=== PATIENT | male | born 1945 | race Caucasian/White ===

== ENCOUNTER 2018-02-04 15:08 | Inpatient (IN) ==
[2018-02-04 16:07] LABS: Basophils % 0.6 % (0.0-0.8); Eosinophils # 0.1 10*3/uL (0.0-0.87); Eosinophils % 0.9 % (0.00-10.9); Hematocrit 32.3 VOL% (42.0-52.0); Hemoglobin 11.9 GM/DL (14.0-18.0); Immature Granulocytes % 0.5 %; Immature Granulocytes Absolute 0.03 #; Lymphocytes # 1.3 10*3/uL (1.4-4.0); Lymphocytes % 20.3 % (21.2-54.2); Mean Corpuscular HGB Conc 36.8 GM/DL (32-36); Mean Corpuscular Hemoglobin 35 PG (27-34); Mean Corpuscular Volume 95.8 FL (87-102); Monocytes # 0.4 10*3/uL (0.11-0.8); Monocytes % 6.3 % (1.7-12.7); Neutrophils # 4.7 10*3/uL (1.4-7.4); Neutrophils % 71.4 % (38.7-73.9); Platelet Count 135 T/CUMM (130-400); Red Blood Count 3.37 MC/CUMM (3.8-5.5); Red Cell Distribution Width 12.1 % (9.3-17.3); White Blood Count 6.5 T/CUMM (4-12)
[2018-02-04 16:26] LABS: PT Patient Result 10.7 SECS
[2018-02-04 16:33] LABS: Albumin 3.5 G/DL (3.4-5.0); Bilirubin,Total 0.4 MG/DL (0.2-1.0); Calcium 8.7 MG/DL (8.5-10.1); Osmolality,Calculated 295.8 MOS/KG (273-304); Total Protein 6.7 G/DL (6.4-8.3)
[2018-02-04] MEDS ORDERED: DEXTROSE 50% 25 GM/50 ML VIAL IV PRN (16:59)
[2018-02-04] MEDS ORDERED: PROMETHAZINE 25 MG/1 ML VIAL IM PRN (16:59)
[2018-02-04] MEDS ORDERED: ONDANSETRON 4 MG/2 ML VIAL IV PRN (16:59)
[2018-02-04] MEDS ORDERED: GLUCAGON 1 MG VIAL IM PRN (16:59)
[2018-02-04 18:23] LABS: CKMB % 1.8 %; Troponin I < 0.015 NG/ML (0.00-0.045)
[2018-02-04 18:46] LABS: Folate > 24.0 NG/ML (5.4-24.0); Vitamin B12 543 PG/ML (211-911)
[2018-02-04 19:00] LABS: Thyroid Stimulating Hormone 0.991 uIU/ml (0.358-3.74)
[2018-02-04] MEDS: SODIUM CHLORIDE 0.9% 1,000 ML IV SCH (19:11)
[2018-02-04 20:38] LABS: Apearance,Urine CLEAR (Clear); Bilirubin,Urine Negative (Negative); Blood, Urine Negative (Negative); Glucose,Urine (UA) >=500 mg/dL (Negative); Hyaline Casts,Urine 15 /LPF (0-3); Ketones,Urine Negative (Negative); Nitrite,Urine Negative (Negative); Protein,Urine Negative; RBC,Urine <1 /HPF (0-4); Squamous Epithelial Cell,Urine Occasional /HPF (0-10); Urine Color Yellow (Yellow); Urine Urobilinogen < 2.0 EU/DL (0.2-1.0); WBC,Urine 1 /HPF (0-6)
[2018-02-04] MEDS ORDERED: ENOXAPARIN 30 MG/0.3 ML SYRINGE SUBCUT SCH (21:00)
[2018-02-04] MEDS: INSULIN REGULAR 100 UNIT/ML SUBCUT SCH (21:12)
[2018-02-04] MEDS: INSULIN GLARGINE 100 UNIT/ML SUBCUT SCH (21:12)
[2018-02-04] MEDS: TAMSULOSIN 0.4 MG CAPSULE PO SCH (21:13)
[2018-02-05] MEDS: SODIUM CHLORIDE 0.9% 1,000 ML IV SCH ×3 (03:12→19:01)
[2018-02-05 04:40] LABS: Basophils % 0.7 % (0.0-0.8); Eosinophils # 0.1 10*3/uL (0.0-0.87); Eosinophils % 1.8 % (0.00-10.9); Hematocrit 32.9 VOL% (42.0-52.0); Hemoglobin 12.1 GM/DL (14.0-18.0); Immature Granulocytes % 0.2 %; Immature Granulocytes Absolute 0.01 #; Lymphocytes % 36.7 % (21.2-54.2); Mean Corpuscular HGB Conc 36.8 GM/DL (32-36); Mean Corpuscular Hemoglobin 36 PG (27-34); Mean Corpuscular Volume 97.3 FL (87-102); Mean Platelet Volume 12.4 FL (9.6-12.0); Monocytes # 0.4 10*3/uL (0.11-0.8); Monocytes % 7.2 % (1.7-12.7); Neutrophils # 2.9 10*3/uL (1.4-7.4); Neutrophils % 53.4 % (38.7-73.9); Platelet Count 123 T/CUMM (130-400); Red Blood Count 3.38 MC/CUMM (3.8-5.5); Red Cell Distribution Width 12.3 % (9.3-17.3); White Blood Count 5.5 T/CUMM (4-12)
[2018-02-05 04:54] LABS: % Iron Saturation 35.9 % (18-50); Ferritin 254.5 ng/ml (26-388)
[2018-02-05 05:00] LABS: Folate 16.5 NG/ML (5.4-24.0); Vitamin B12 401 PG/ML (211-911)
[2018-02-05 05:02] LABS: Bilirubin,Total 0.4 MG/DL (0.2-1.0); Calcium 8.4 MG/DL (8.5-10.1); Osmolality,Calculated 294.3 MOS/KG (273-304); Risk Ratio 6.31; VLDL CHOLESTEROL 132.4 MG/DL
[2018-02-05] MEDS ORDERED: LEVOTHYROXINE 75 MCG TABLET PO SCH (06:30)
[2018-02-05 07:57] LABS: Sedimentation Rate-Westergren 41 MM/HR (0-20)
[2018-02-05] MEDS: INSULIN GLARGINE 100 UNIT/ML SUBCUT SCH ×2 (08:26→21:11)
[2018-02-05] MEDS: TAMSULOSIN 0.4 MG CAPSULE PO SCH ×2 (08:26→21:11)
[2018-02-05] MEDS: INSULIN REGULAR 100 UNIT/ML SUBCUT SCH ×4 (08:28→21:11)
[2018-02-05] MEDS ORDERED: ASPIRIN EC 325 MG TABLET PO SCH (09:00)
[2018-02-05] MEDS ORDERED: CYANOCOBALAMIN 1000 MCG/1 ML VIAL IM ONE (14:41)
[2018-02-05] MEDS ORDERED: FENOFIBRATE 160 MG TABLET PO SCH (15:00)
[2018-02-05 20:27] VITALS: BP 123/64
[2018-02-05] MEDS ORDERED: ENOXAPARIN 40 MG/0.4 ML SYRINGE SUBCUT SCH (21:00)
[2018-02-06] MEDS ORDERED: CYANOCOBALAMIN 500 MCG TABLET PO SCH (09:00)
[2018-02-07 10:19] LABS: Hemoglobin A1 (Alkaline) 97.5 % (96.5-98.5); Hemoglobin A2 (Alkaline) 2.5 % (1.5-3.5)
== END 2018-02-05 21:22 | disposition home or self-care (01) | DRG 684 ==
LOC: N.ED 15:08 → N.EDINP 16:59 → N.TELES 17:47
PROVIDERS: ADMIT Hospitalist; ATTEND Hospitalist

== ENCOUNTER 2018-07-10 18:24 | Inpatient (IN) ==
[2018-07-10] MEDS ORDERED: ASPIRIN 325 MG TABLET PO STA (19:02)
[2018-07-10] MEDS ORDERED: SODIUM CHLORIDE 0.9% 1,000 ML IV STA (19:02)
[2018-07-10 19:30] LABS: Basophils # 0.1 10*3/uL (0.0-0.2); Basophils % 0.9 % (0.0-0.8); Eosinophils # 0.1 10*3/uL (0.0-0.87); Eosinophils % 2.1 % (0.00-10.9); Hematocrit 39.3 VOL% (42.0-52.0); Hemoglobin 13.8 GM/DL (14.0-18.0); Immature Granulocytes % 0.3 %; Immature Granulocytes Absolute 0.02 #; Lymphocytes # 1.3 10*3/uL (1.4-4.0); Lymphocytes % 21.9 % (21.2-54.2); Mean Corpuscular HGB Conc 35.1 GM/DL (32-36); Mean Corpuscular Hemoglobin 34 PG (27-34); Mean Corpuscular Volume 97.3 FL (87-102); Mean Platelet Volume 12.6 FL (9.6-12.0); Monocytes # 0.4 10*3/uL (0.11-0.8); Monocytes % 7.4 % (1.7-12.7); Neutrophils # 3.9 10*3/uL (1.4-7.4); Neutrophils % 67.4 % (38.7-73.9); Red Blood Count 4.04 MC/CUMM (3.8-5.5); Red Cell Distribution Width 12.8 % (9.3-17.3); White Blood Count 5.8 T/CUMM (4-12)
[2018-07-10 19:34] LABS: Platelet Count 68 T/CUMM (130-400)
[2018-07-10 19:38] LABS: PT Patient Result 10.7 SECS
[2018-07-10 19:49] LABS: Albumin 3.2 G/DL (3.4-5.0); Bilirubin,Total 0.6 MG/DL (0.2-1.0); Calcium 8.6 MG/DL (8.5-10.1); Osmolality,Calculated 287.5 MOS/KG (273-304); Platelet Estimate Decreased; Potassium 5.8 MMOL/L (3.5-5.1); Total Protein 6.4 G/DL (6.4-8.3)
[2018-07-10] MEDS ORDERED: ENOXAPARIN 30 MG/0.3 ML SYRINGE SUBCUT STA (20:17)
[2018-07-10] MEDS ORDERED: ENOXAPARIN 100 MG/ML SYRINGE SUBCUT ONE (20:39)
[2018-07-10] MEDS ORDERED: ONDANSETRON 4 MG/2 ML VIAL IV PRN (20:40)
[2018-07-10] MEDS ORDERED: amLODIPine 5 MG TABLET PO STA (22:17)
[2018-07-10] MEDS: TAMSULOSIN 0.4 MG CAPSULE PO SCH (22:48)
[2018-07-10] MEDS: INSULIN GLARGINE 100 UNIT/ML SUBCUT SCH (22:48)
[2018-07-10 23:07] LABS: Troponin I 0.395 NG/ML (0.00-0.045)
[2018-07-11 00:55] LABS: Basophils # 0.1 10*3/uL (0.0-0.2); Basophils % 0.9 % (0.0-0.8); Eosinophils # 0.1 10*3/uL (0.0-0.87); Eosinophils % 2.5 % (0.00-10.9); Hematocrit 35.6 VOL% (42.0-52.0); Hemoglobin 12.6 GM/DL (14.0-18.0); Immature Granulocytes % 0.4 %; Immature Granulocytes Absolute 0.02 #; Lymphocytes % 35.6 % (21.2-54.2); Mean Corpuscular HGB Conc 35.4 GM/DL (32-36); Mean Corpuscular Hemoglobin 35 PG (27-34); Mean Corpuscular Volume 97.5 FL (87-102); Mean Platelet Volume 11.4 FL (9.6-12.0); Monocytes # 0.5 10*3/uL (0.11-0.8); Monocytes % 8.5 % (1.7-12.7); Neutrophils % 52.1 % (38.7-73.9); Platelet Count 100 T/CUMM (130-400); Red Blood Count 3.65 MC/CUMM (3.8-5.5); White Blood Count 5.7 T/CUMM (4-12)
[2018-07-11 01:30] LABS: Bilirubin,Total 0.6 MG/DL (0.2-1.0); Calcium 8.2 MG/DL (8.5-10.1); Potassium 4.3 MMOL/L (3.5-5.1); Total Protein 5.4 G/DL (6.4-8.3)
[2018-07-11 01:41] LABS: Troponin I 0.371 NG/ML (0.00-0.045)
[2018-07-11 05:10] LABS: Troponin I 0.358 NG/ML (0.00-0.045)
[2018-07-11] MEDS ORDERED: diphenhydrAMINE CAP 25 MG CAPSULE PO ONE (07:14)
[2018-07-11] MEDS ORDERED: DIAZEPAM 5 MG TABLET PO ONE (07:14)
[2018-07-11] MEDS ORDERED: TICAGRELOR 90 MG TABLET PO ONE (07:16)
[2018-07-11] MEDS ORDERED: ASPIRIN CHEW 81 MG TABLET PO ONE (08:30)
[2018-07-11] MEDS: ASPIRIN CHEW 81 MG TABLET PO SCH (08:59)
[2018-07-11] MEDS: LOSARTAN 50 MG TABLET PO SCH (08:59)
[2018-07-11] MEDS: EZETIMIBE 10 MG TABLET PO SCH (08:59)
[2018-07-11] MEDS: PANTOPRAZOLE 40 MG TABLET PO SCH (08:59)
[2018-07-11] MEDS: LEVOTHYROXINE 75 MCG TABLET PO SCH (08:59)
[2018-07-11] MEDS ORDERED: TICAGRELOR 90 MG TABLET PO SCH (09:00)
[2018-07-11] MEDS ORDERED: ENOXAPARIN 40 MG/0.4 ML SYRINGE SUBCUT SCH (09:00)
[2018-07-11] MEDS: METOPROLOL SUCCINATE XL 100 MG TABLET PO SCH (09:00)
[2018-07-11] MEDS: INSULIN GLARGINE 100 UNIT/ML SUBCUT SCH ×2 (09:00→21:01)
[2018-07-11] MEDS ORDERED: ASPIRIN EC 325 MG TABLET PO SCH (09:00)
[2018-07-11] MEDS: TAMSULOSIN 0.4 MG CAPSULE PO SCH ×2 (09:00→21:01)
[2018-07-11] MEDS: glipiZIDE 10 MG TABLET PO SCH ×2 (09:01→16:01)
[2018-07-11] MEDS ORDERED: DEXTROSE 50% 25 GM/50 ML VIAL IV ONE (09:06)
[2018-07-11] MEDS ORDERED: DEXTROSE 50% 25 GM/50 ML SYRINGE IV ONE (09:08)
[2018-07-11] MEDS: SODIUM CHLORIDE 0.9% 1,000 ML IV SCH ×2 (09:16→16:03)
[2018-07-11] MEDS ORDERED: HEPARIN/NACL 0.9% 2 UNITS/ML 1,000 ML IV ONE (10:17)
[2018-07-11] MEDS ORDERED: LIDOCAINE 1% 20 ML VIAL ONE (10:17)
[2018-07-11] MEDS ORDERED: fentaNYL 100 MCG/2 ML VIAL ONE (10:18)
[2018-07-11] MEDS ORDERED: MIDAZOLAM 2 MG/2 ML VIAL ONE (10:18)
[2018-07-11] MEDS ORDERED: ACETAMINOPHEN 325 MG TABLET PO PRN (11:05)
[2018-07-11] MEDS ORDERED: GLUCAGON 1 MG VIAL IM PRN (11:05)
[2018-07-11] MEDS ORDERED: DEXTROSE 50% 25 GM/50 ML SYRINGE IV PRN (11:05)
[2018-07-11] MEDS ORDERED: MORPHINE 4 MG/1 ML VIAL IV PRN (11:05)
[2018-07-11] MEDS ORDERED: ZALEPLON 5 MG CAPSULE PO PRN (11:06)
[2018-07-11] MEDS: INSULIN REGULAR 100 UNIT/ML SUBCUT SCH ×3 (12:41→21:02)
[2018-07-11 15:19] LABS: Apearance,Urine CLEAR (Clear); Bilirubin,Urine Negative (Negative); Blood, Urine Negative (Negative); Glucose,Urine (UA) 50 mg/dL (Negative); Ketones,Urine Negative (Negative); Nitrite,Urine Negative (Negative); Protein,Urine Negative; RBC,Urine 1 /HPF (0-4); Urine Color Straw (Yellow); Urine Urobilinogen < 2.0 EU/DL (0.2-1.0); WBC,Urine 1 /HPF (0-6)
[2018-07-11] MEDS ORDERED: diphenhydrAMINE CAP 25 MG CAPSULE PO PRN (15:39)
[2018-07-11] MEDS ORDERED: MAGNESIUM HYDROXIDE SUSP 30 ML UDCUP PO PRN (15:39)
[2018-07-12 04:30] LABS: Basophils % 0.6 % (0.0-0.8); Eosinophils # 0.2 10*3/uL (0.0-0.87); Eosinophils % 2.9 % (0.00-10.9); Hematocrit 38.7 VOL% (42.0-52.0); Hemoglobin 13.4 GM/DL (14.0-18.0); Immature Granulocytes % 0.6 %; Immature Granulocytes Absolute 0.04 #; Lymphocytes # 1.7 10*3/uL (1.4-4.0); Lymphocytes % 24.2 % (21.2-54.2); Mean Corpuscular HGB Conc 34.6 GM/DL (32-36); Mean Corpuscular Hemoglobin 34 PG (27-34); Mean Corpuscular Volume 97.7 FL (87-102); Mean Platelet Volume 11.3 FL (9.6-12.0); Monocytes # 0.6 10*3/uL (0.11-0.8); Monocytes % 7.7 % (1.7-12.7); Neutrophils # 4.6 10*3/uL (1.4-7.4); Platelet Count 102 T/CUMM (130-400); Red Blood Count 3.96 MC/CUMM (3.8-5.5); Red Cell Distribution Width 12.8 % (9.3-17.3); White Blood Count 7.1 T/CUMM (4-12)
[2018-07-12 04:43] LABS: Calcium 7.9 MG/DL (8.5-10.1); Osmolality,Calculated 285.3 MOS/KG (273-304)
[2018-07-12 04:46] LABS: Calcium 7.6 MG/DL (8.5-10.1); Osmolality,Calculated 287.1 MOS/KG (273-304); Potassium 4.1 MMOL/L (3.5-5.1)
[2018-07-12 04:54] LABS: Risk Ratio 4.15
[2018-07-12] MEDS: LEVOTHYROXINE 75 MCG TABLET PO SCH (05:57)
[2018-07-12] MEDS: SODIUM CHLORIDE 0.9% 1,000 ML IV SCH ×2 (06:18→16:52)
[2018-07-12] MEDS: INSULIN REGULAR 100 UNIT/ML SUBCUT SCH ×4 (08:29→21:12)
[2018-07-12] MEDS: ASPIRIN EC 81 MG TABLET PO SCH (09:07)
[2018-07-12] MEDS: ASPIRIN CHEW 81 MG TABLET PO SCH (09:08)
[2018-07-12] MEDS: PANTOPRAZOLE 40 MG TABLET PO SCH (09:08)
[2018-07-12] MEDS: glipiZIDE 10 MG TABLET PO SCH ×2 (09:08→16:53)
[2018-07-12] MEDS: EZETIMIBE 10 MG TABLET PO SCH (09:09)
[2018-07-12] MEDS: METOPROLOL SUCCINATE XL 100 MG TABLET PO SCH (09:09)
[2018-07-12] MEDS: INSULIN GLARGINE 100 UNIT/ML SUBCUT SCH ×2 (09:09→21:12)
[2018-07-12] MEDS: LOSARTAN 50 MG TABLET PO SCH (09:09)
[2018-07-12] MEDS: TAMSULOSIN 0.4 MG CAPSULE PO SCH ×2 (09:09→21:12)
[2018-07-13] MEDS: SODIUM CHLORIDE 0.9% 1,000 ML IV SCH (04:29)
[2018-07-13 05:23] LABS: Basophils % 0.6 % (0.0-0.8); Eosinophils # 0.2 10*3/uL (0.0-0.87); Eosinophils % 3.3 % (0.00-10.9); Hemoglobin 12.9 GM/DL (14.0-18.0); Immature Granulocytes % 0.8 %; Immature Granulocytes Absolute 0.05 #; Lymphocytes # 1.9 10*3/uL (1.4-4.0); Lymphocytes % 28.6 % (21.2-54.2); Mean Corpuscular HGB Conc 34.9 GM/DL (32-36); Mean Corpuscular Hemoglobin 34 PG (27-34); Mean Corpuscular Volume 97.1 FL (87-102); Mean Platelet Volume 11.7 FL (9.6-12.0); Monocytes # 0.6 10*3/uL (0.11-0.8); Monocytes % 9.6 % (1.7-12.7); Neutrophils # 3.8 10*3/uL (1.4-7.4); Neutrophils % 57.1 % (38.7-73.9); Red Blood Count 3.81 MC/CUMM (3.8-5.5); Red Cell Distribution Width 12.9 % (9.3-17.3); White Blood Count 6.6 T/CUMM (4-12)
[2018-07-13 05:26] LABS: Platelet Count 98 T/CUMM (130-400)
[2018-07-13 05:36] LABS: Calcium 8.1 MG/DL (8.5-10.1); Potassium 3.9 MMOL/L (3.5-5.1)
[2018-07-13 05:46] LABS: Platelet Estimate Decreased; Polychromasia Few
[2018-07-13] MEDS: LEVOTHYROXINE 75 MCG TABLET PO SCH (06:12)
[2018-07-13] MEDS: ASPIRIN EC 81 MG TABLET PO SCH (09:32)
[2018-07-13] MEDS: INSULIN REGULAR 100 UNIT/ML SUBCUT SCH ×2 (09:33→13:22)
[2018-07-13] MEDS: EZETIMIBE 10 MG TABLET PO SCH (09:56)
[2018-07-13] MEDS: PANTOPRAZOLE 40 MG TABLET PO SCH (09:57)
[2018-07-13] MEDS: LOSARTAN 50 MG TABLET PO SCH (09:57)
[2018-07-13] MEDS: TAMSULOSIN 0.4 MG CAPSULE PO SCH (09:57)
[2018-07-13] MEDS: INSULIN GLARGINE 100 UNIT/ML SUBCUT SCH (09:57)
[2018-07-13] MEDS: ASPIRIN CHEW 81 MG TABLET PO SCH (09:57)
[2018-07-13] MEDS: glipiZIDE 10 MG TABLET PO SCH (09:57)
[2018-07-13] MEDS: METOPROLOL SUCCINATE XL 100 MG TABLET PO SCH (10:02)
[2018-07-13] MEDS ORDERED: NITROGLYCERIN SL 0.4 MG TABLET SL PRN (10:22)
[2018-07-13 12:15] VITALS: BP 130/70
== END 2018-07-13 13:33 | disposition home or self-care, planned readmission (81) | DRG 287 ==
LOC: EDBD → EDUNIT# → N.ED 18:24 → N.EDINP 20:38 → N.TELEN 21:09
PROVIDERS: ADMIT Internal Medicine Cardiovascular Disease; ATTEND Internal Medicine Cardiovascular Disease

== ENCOUNTER 2018-07-17 12:42 | Inpatient (IN) ==
[~2018-07-17 12:42] MED LIST: DEXTROSE 50% 25 GM/50 ML SYRINGE IV PRN; GLUCAGON 1 MG VIAL IM PRN; NITROGLYCERIN SL 0.4 MG TABLET SL PRN
[2018-07-17 14:20] LABS: Basophils # 0.1 10*3/uL (0.0-0.2); Basophils % 0.9 % (0.0-0.8); Eosinophils # 0.2 10*3/uL (0.0-0.87); Eosinophils % 2.6 % (0.00-10.9); Hematocrit 39.8 VOL% (42.0-52.0); Hemoglobin 13.7 GM/DL (14.0-18.0); Immature Granulocytes % 0.6 %; Immature Granulocytes Absolute 0.04 #; Lymphocytes # 1.6 10*3/uL (1.4-4.0); Lymphocytes % 22.6 % (21.2-54.2); Mean Corpuscular HGB Conc 34.4 GM/DL (32-36); Mean Corpuscular Hemoglobin 34 PG (27-34); Mean Platelet Volume 11.4 FL (9.6-12.0); Monocytes # 0.7 10*3/uL (0.11-0.8); Monocytes % 10.2 % (1.7-12.7); Neutrophils # 4.3 10*3/uL (1.4-7.4); Neutrophils % 63.1 % (38.7-73.9); Platelet Count 135 T/CUMM (130-400); Red Blood Count 4.06 MC/CUMM (3.8-5.5); Red Cell Distribution Width 13.2 % (9.3-17.3); White Blood Count 6.9 T/CUMM (4-12)
[2018-07-17 14:49] LABS: Albumin 3.5 G/DL (3.4-5.0); Bilirubin,Total 0.4 MG/DL (0.2-1.0); Calcium 8.8 MG/DL (8.5-10.1); Osmolality,Calculated 290.1 MOS/KG (273-304); Potassium 4.2 MMOL/L (3.5-5.1); Total Protein 6.8 G/DL (6.4-8.3)
[2018-07-17] MEDS ORDERED: INFLUENZA VIRUS VACCINE 0.5 ML SYRINGE IM ONE (14:55)
[2018-07-17] MEDS: SODIUM CHLORIDE 0.9% 1,000 ML IV SCH ×3 (15:37→16:50)
[2018-07-17] MEDS: INSULIN GLARGINE 100 UNIT/ML SUBCUT SCH ×4 (15:37→21:09)
[2018-07-17] MEDS: TAMSULOSIN 0.4 MG CAPSULE PO SCH ×3 (15:37→20:50)
[2018-07-17] MEDS: MULTIVITAMIN (CENTRUM) TABLET PO SCH ×3 (15:38→15:40)
[2018-07-17] MEDS: METOPROLOL SUCCINATE XL 100 MG TABLET PO SCH ×2 (15:38→15:40)
[2018-07-17] MEDS: POTASSIUM GLUCONATE 500 MG TABLET PO SCH ×3 (15:38→15:40)
[2018-07-17] MEDS: ASPIRIN EC 81 MG TABLET PO SCH ×3 (15:38→15:40)
[2018-07-17] MEDS: LOSARTAN 50 MG TABLET PO SCH ×3 (15:38→15:40)
[2018-07-17] MEDS: EZETIMIBE 10 MG TABLET PO SCH ×2 (15:38→15:40)
[2018-07-17 15:50] LABS: ABG Base Excess 2.6 MMOL/L (-2.5-2.5); ABG HCO3 26.7 MMOL/L (20-26); ABG Oxygen Saturation 96.5 % (95-100); ABG PCO2 42.5 MM HG (35-48); ABG PH 7.419 (7.35-7.45); ABG PO2 80.9 MM HG (80-95); ABG TCO2 23.7 MMOL/L (23-27)
[2018-07-17] MEDS: CHLORHEXIDINE 0.12% ORAL RINSE 60 ML BOTTLE SWISH/SPIT SCH ×2 (16:49→21:09)
[2018-07-17] MEDS: CHLORHEXIDINE 4% SOLN 118 ML BOTTLE TOP SCH ×2 (16:50→20:50)
[2018-07-18] MEDS ORDERED: PAPAVERINE 60 MG/2 ML VIAL ONE (04:55)
[2018-07-18] MEDS ORDERED: VANCOMYCIN 1,000 MG VIAL ONE (04:55)
[2018-07-18] MEDS: CHLORHEXIDINE 4% SOLN 118 ML BOTTLE TOP SCH ×2 (05:01→11:07)
[2018-07-18] MEDS ORDERED: DIAZEPAM 5 MG TABLET PO ONE (06:00)
[2018-07-18] MEDS ORDERED: CEFUROXIME INJ 1,500 MG in SYRINGE 1 EACH IV ONE (06:00)
[2018-07-18] MEDS ORDERED: LEVOTHYROXINE 75 MCG TABLET PO SCH (07:00)
[2018-07-18 07:46] LABS: ABG HCO3 26.3 MMOL/L (20-26); ABG PCO2 32.4 MM HG (35-48); ABG PH 7.492 (7.35-7.45); ABG TCO2 21.8 MMOL/L (23-27); Glucose Heart Surgery 147 MG/DL (74-106); Hematocrit Heart Surgery 37.2 PERCENT (42-52); Hemoglobin Heart Surgery 12.1 G/DL (14.0-18.0); PCO2 Patient Temp Arterial 32.4 MMHG; PH Patient Temp Arterial 7.492; Patient Temperature 37 CELCIUS; Potassium Heart/CVR 3.2 MMOL/L (3.5-5.1); Sodium Heart/CVR 141 MMOL/L (135-145)
[2018-07-18 07:51] LABS: Apearance,Urine CLEAR (Clear); Bilirubin,Urine Negative (Negative); Blood, Urine Small mg/dL (Negative); Glucose,Urine (UA) Negative (Negative); Ketones,Urine Negative (Negative); Nitrite,Urine Negative (Negative); Protein,Urine Negative; RBC,Urine 4 /HPF (0-4); Squamous Epithelial Cell,Urine Occasional /HPF (0-10); Urine Color Yellow (Yellow); Urine Specific Gravity 1.013 (1.001-1.035); Urine Urobilinogen < 2.0 EU/DL (0.2-1.0); WBC,Urine <1 /HPF (0-6)
[2018-07-18] MEDS ORDERED: NITROPRUSSIDE 50 MG/2 ML VIAL ONE (10:16)
[2018-07-18] MEDS ORDERED: CALCIUM CHLORIDE 1,000 MG/10 ML SYRINGE IV ONE (10:17)
[2018-07-18] MEDS ORDERED: PHENYLEPHRINE DRIP 40 MG/250 ML PREMIX IV ONE (10:17)
[2018-07-18] MEDS ORDERED: POTASSIUM CHLORIDE RIDER 100 ML IV ONE ×2 (10:17→11:47)
[2018-07-18 10:25] LABS: Hematocrit Heart Surgery 27.5 PERCENT (42-52); Hemoglobin Heart Surgery 8.9 G/DL (14.0-18.0); PH Patient Temp Venous 7.523; PO2 Patient Temp Venous 37.5 MM HG; Potassium Heart/CVR 4.1 MMOL/L (3.5-5.1); VBG Base Excess 4.5 MEQ/L (0-4); VBG HCO3 28.2 MEQ/L (24-28); VBG Oxygen Saturation 83.1 %; VBG PCO2 36.3 MMHG (41-51); VBG PH 7.493; VBG PO2 43.1 MMHG (17-40)
[2018-07-18] MEDS ORDERED: ALBUMIN 5% 12.5 GM/250 ML VIAL IV ONE (10:32)
[2018-07-18 10:56] LABS: Hematocrit Heart Surgery 28.3 PERCENT (42-52); Hemoglobin Heart Surgery 9.1 G/DL (14.0-18.0); PCO2 Patient Temp Venous 28.6 MM HG; PH Patient Temp Venous 7.563; PO2 Patient Temp Venous 33.5 MM HG; Potassium Heart/CVR 3.9 MMOL/L (3.5-5.1); VBG HCO3 27.7 MEQ/L (24-28); VBG Oxygen Saturation 82.7 %; VBG PH 7.517; VBG PO2 41.3 MMHG (17-40)
[2018-07-18] MEDS: MULTIVITAMIN (CENTRUM) TABLET PO SCH (11:07)
[2018-07-18] MEDS: TAMSULOSIN 0.4 MG CAPSULE PO SCH (11:07)
[2018-07-18] MEDS: LOSARTAN 50 MG TABLET PO SCH (11:07)
[2018-07-18] MEDS: ASPIRIN EC 81 MG TABLET PO SCH (11:07)
[2018-07-18] MEDS: METOPROLOL SUCCINATE XL 100 MG TABLET PO SCH (11:08)
[2018-07-18] MEDS: EZETIMIBE 10 MG TABLET PO SCH (11:08)
[2018-07-18] MEDS: POTASSIUM GLUCONATE 500 MG TABLET PO SCH (11:08)
[2018-07-18] MEDS: INSULIN GLARGINE 100 UNIT/ML SUBCUT SCH (11:08)
[2018-07-18] MEDS: CHLORHEXIDINE 0.12% ORAL RINSE 60 ML BOTTLE SWISH/SPIT SCH ×2 (11:08→22:23)
[2018-07-18] MEDS ORDERED: MANNITOL 100 GM/500 ML BAG IV ONE (11:45)
[2018-07-18] MEDS ORDERED: SODIUM BICARBONATE 50 MEQ/50 ML SYRINGE IV ONE (11:46)
[2018-07-18] MEDS ORDERED: MAGNESIUM SULFATE 10 GM/20 ML VIAL IV ONE (11:46)
[2018-07-18] MEDS ORDERED: ALBUMIN 25% 25 GM/100 ML VIAL IV ONE (11:46)
[2018-07-18] MEDS ORDERED: DEXTROSE 5% KCL 20 MEQ 20 MEQ/1,000 ML BAG IV ONE (11:46)
[2018-07-18] MEDS ORDERED: methylPREDNISolone SOD SUC 1,000 MG/8 ML VIAL ONE (11:46)
[2018-07-18] MEDS ORDERED: PROTAMINE SULFATE 250 MG/25 ML VIAL IV ONE (11:46)
[2018-07-18] MEDS ORDERED: HEPARIN 10,000 UNIT/10 ML VIAL ONE (11:46)
[2018-07-18] MEDS ORDERED: POTASSIUM CHLORIDE 20 MEQ/10 ML VIAL ONE (11:47)
[2018-07-18] MEDS ORDERED: FUROSEMIDE 20 MG/2 ML VIAL ONE (11:47)
[2018-07-18 11:59] LABS: ABG Base Excess 3.3 MMOL/L (-2.5-2.5); ABG HCO3 27.4 MMOL/L (20-26); ABG PCO2 29.6 MM HG (35-48); ABG PH 7.543 (7.35-7.45); ABG TCO2 23.4 MMOL/L (23-27); Glucose Heart Surgery 202 MG/DL (74-106); Hematocrit Heart Surgery 27.3 PERCENT (42-52); Hemoglobin Heart Surgery 8.8 G/DL (14.0-18.0); PCO2 Patient Temp Arterial 29.6 MMHG; PH Patient Temp Arterial 7.543; Patient Temperature 37 CELCIUS; Potassium Heart/CVR 3.8 MMOL/L (3.5-5.1); Sodium Heart/CVR 140 MMOL/L (135-145)
[2018-07-18] MEDS ORDERED: PROTAMINE SULFATE 50 MG/5 ML VIAL IV ONE ×3 (13:07→18:19)
[2018-07-18] MEDS ORDERED: INSULIN REGULAR 100 UNIT/ML IV ONE (13:14)
[2018-07-18] MEDS ORDERED: PHENYLEPHRINE DRIP 40 MG/250 ML PREMIX IV PRN (13:14)
[2018-07-18] MEDS ORDERED: INSULIN REGULAR 100 UNIT/ML IV PRN (13:14)
[2018-07-18] MEDS ORDERED: MAGNESIUM SULF RIDER 2 GM in PREMIX 1 EACH IV PRN (13:14)
[2018-07-18] MEDS ORDERED: MIDAZOLAM 10 MG/2 ML VIAL IV PRN (13:14)
[2018-07-18] MEDS ORDERED: LACTATED RINGERS 250 ML IV PRN (13:14)
[2018-07-18] MEDS ORDERED: CALCIUM CHLORIDE 1,000 MG/10 ML SYRINGE IV PRN (13:14)
[2018-07-18] MEDS ORDERED: DEXTROSE 50% 25 GM/50 ML SYRINGE IV PRN ×2 (13:14)
[2018-07-18] MEDS ORDERED: MORPHINE 10 MG/1 ML VIAL IV PRN (13:14)
[2018-07-18] MEDS ORDERED: MIDAZOLAM 2 MG/2 ML VIAL IV PRN (13:14)
[2018-07-18] MEDS ORDERED: MAGNESIUM SULF RIDER 4 GM in PREMIX 1 EACH IV PRN (13:14)
[2018-07-18] MEDS ORDERED: ACETAMINOPHEN 650 MG SUPP RECTAL PRN (13:14)
[2018-07-18] MEDS ORDERED: ONDANSETRON 4 MG/2 ML VIAL IV PRN (13:14)
[2018-07-18] MEDS ORDERED: POTASSIUM CHLORIDE RIDER 10 MEQ in PREMIX 1 EACH IV PRN (13:14)
[2018-07-18] MEDS ORDERED: NITROPRUSSIDE 100 MG in DEXTROSE 5% 250 ML IV PRN (13:14)
[2018-07-18] MEDS ORDERED: VECURONIUM 10 MG VIAL IV PRN ×2 (13:14)
[2018-07-18] MEDS ORDERED: INSULIN REGULAR DRIP 100 ML IV SCH (13:30)
[2018-07-18 13:33] LABS: ABG Base Excess 1.8 MMOL/L (-2.5-2.5); ABG PH 7.527 (7.35-7.45); ABG TCO2 22.2 MMOL/L (23-27); Glucose Heart Surgery 192 MG/DL (74-106); Hematocrit Heart Surgery 26.4 PERCENT (42-52); Hemoglobin Heart Surgery 8.5 G/DL (14.0-18.0); Potassium Heart/CVR 3.2 MMOL/L (3.5-5.1)
[2018-07-18 13:39] LABS: Basophils % 0.2 % (0.0-0.8); Eosinophils # 0.1 10*3/uL (0.0-0.87); Eosinophils % 0.6 % (0.00-10.9); Hemoglobin 8.2 GM/DL (14.0-18.0); Immature Granulocytes % 0.6 %; Immature Granulocytes Absolute 0.08 #; Lymphocytes # 1.9 10*3/uL (1.4-4.0); Lymphocytes % 14.4 % (21.2-54.2); Mean Corpuscular HGB Conc 35.7 GM/DL (32-36); Mean Corpuscular Hemoglobin 34 PG (27-34); Mean Corpuscular Volume 96.2 FL (87-102); Mean Platelet Volume 11.2 FL (9.6-12.0); Monocytes # 1.1 10*3/uL (0.11-0.8); Monocytes % 8.1 % (1.7-12.7); Neutrophils # 9.9 10*3/uL (1.4-7.4); Neutrophils % 76.1 % (38.7-73.9); Platelet Count 157 T/CUMM (130-400); Red Blood Count 2.39 MC/CUMM (3.8-5.5); Red Cell Distribution Width 13.2 % (9.3-17.3); White Blood Count 13.1 T/CUMM (4-12)
[2018-07-18] MEDS ORDERED: DEXTROSE 50% 25 GM/50 ML VIAL IV ONE (13:41)
[2018-07-18] MEDS ORDERED: CALCIUM CHLORIDE 1,000 MG/10 ML VIAL IV ONE (13:41)
[2018-07-18] MEDS ORDERED: SUFentanil 250 MCG/5 ML AMP ONE ×2 (13:42)
[2018-07-18] MEDS ORDERED: SEVOFLURANE 1 UNIT/15 MINUTE INH ONE (13:42)
[2018-07-18] MEDS ORDERED: PHENYLEPHRINE DRIP 20 MG/250 ML PREMIX IV ONE (13:42)
[2018-07-18] MEDS ORDERED: MIDAZOLAM 10 MG/2 ML VIAL ONE (13:43)
[2018-07-18] MEDS ORDERED: LACTATED RINGERS 1,000 ML IV ONE (13:43)
[2018-07-18] MEDS ORDERED: VECURONIUM 10 MG VIAL IV ONE (13:43)
[2018-07-18] MEDS ORDERED: SODIUM CHLORIDE 0.9% 100 ML IV ONE (13:43)
[2018-07-18] MEDS ORDERED: SODIUM CHLORIDE 0.9% 1,000 ML IV ONE (13:43)
[2018-07-18 13:45] LABS: INR 1.4; PT Patient Result 14.7 SECS; Partial Thromboplastin Time 25.8 SECS (0-40)
[2018-07-18] MEDS: ALBUMIN 5% 12.5 GM in PREMIX 1 EACH IV PRN ×4 (13:45→20:09)
[2018-07-18] MEDS ORDERED: HEPARIN/NACL 0.9% 2 UNITS/ML 500 ML IV ONE (13:45)
[2018-07-18] MEDS ORDERED: NITROGLYCERIN DRIP 50 MG/250 ML BOTTLE IV ONE (13:46)
[2018-07-18 14:08] LABS: Albumin 2.8 G/DL (3.4-5.0); Bilirubin,Total 1.4 MG/DL (0.2-1.0); Calcium 9.6 MG/DL (8.5-10.1); Potassium 3.3 MMOL/L (3.5-5.1); Total Protein 5.1 G/DL (6.4-8.3)
[2018-07-18 14:23] LABS: CKMB % 5.2 %
[2018-07-18 14:44] LABS: Troponin I 4.35 NG/ML (0.00-0.045)
[2018-07-18] MEDS: SODIUM CHLORIDE 0.45% 1,000 ML IV SCH ×2 (15:16)
[2018-07-18] MEDS: POTASSIUM CHLORIDE RIDER 20 MEQ in PREMIX 1 EACH IV PRN ×2 (15:17→17:28)
[2018-07-18 15:55] LABS: ABG Base Excess -1.9 MMOL/L (-2.5-2.5); ABG HCO3 22.8 MMOL/L (20-26); ABG Oxygen Saturation 99.5 % (95-100); ABG PCO2 29.9 MM HG (35-48); ABG PH 7.455 (7.35-7.45); ABG TCO2 18.7 MMOL/L (23-27); Glucose Heart Surgery 254 MG/DL (74-106); Hematocrit Heart Surgery 34.5 PERCENT (42-52); Potassium Heart/CVR 4.5 MMOL/L (3.5-5.1)
[2018-07-18 15:56] LABS: Hemoglobin Heart Surgery 11.2 G/DL (14.0-18.0)
[2018-07-18] MEDS: LACTATED RINGERS 1,000 ML IV PRN ×2 (17:03→22:58)
[2018-07-18 17:14] LABS: ABG Base Excess -3.7 MMOL/L (-2.5-2.5); ABG HCO3 21.3 MMOL/L (20-26); ABG PH 7.343 (7.35-7.45); Glucose Heart Surgery 217 MG/DL (74-106); Hematocrit Heart Surgery 28.8 PERCENT (42-52); Hemoglobin Heart Surgery 9.3 G/DL (14.0-18.0); Potassium Heart/CVR 3.7 MMOL/L (3.5-5.1)
[2018-07-18] MEDS: KETOROLAC 30 MG/1 ML VIAL IV SCH (17:52)
[2018-07-18] MEDS: MORPHINE 4 MG/1 ML VIAL IV PRN ×2 (19:59→21:09)
[2018-07-18 22:05] LABS: ABG Base Excess -3.1 MMOL/L (-2.5-2.5); ABG HCO3 21.8 MMOL/L (20-26); ABG Oxygen Saturation 99.6 % (95-100); ABG PCO2 30.4 MM HG (35-48); ABG PH 7.432 (7.35-7.45); ABG TCO2 18.4 MMOL/L (23-27); Glucose Heart Surgery 148 MG/DL (74-106); Potassium Heart/CVR 4.9 MMOL/L (3.5-5.1)
[2018-07-18] MEDS: CEFUROXIME INJ 1,500 MG in SYRINGE 1 EACH IV SCH (22:20)
[2018-07-18 22:34] LABS: CKMB % 4.7 %
[2018-07-18 22:35] LABS: Troponin I 3.96 NG/ML (0.00-0.045)
[2018-07-19] MEDS: KETOROLAC 30 MG/1 ML VIAL IV SCH ×2 (00:16→06:09)
[2018-07-19] MEDS: MORPHINE 4 MG/1 ML VIAL IV PRN ×3 (01:30→20:36)
[2018-07-19 03:53] LABS: ABG Base Excess -1.3 MMOL/L (-2.5-2.5); ABG HCO3 23.3 MMOL/L (20-26); ABG Oxygen Saturation 99.6 % (95-100); ABG PCO2 32.5 MM HG (35-48); ABG PH 7.443 (7.35-7.45); ABG TCO2 20.3 MMOL/L (23-27); Glucose Heart Surgery 132 MG/DL (74-106); Hemoglobin Heart Surgery 9.3 G/DL (14.0-18.0); Potassium Heart/CVR 5.1 MMOL/L (3.5-5.1)
[2018-07-19 04:05] LABS: Basophils % 0.1 % (0.0-0.8); Hematocrit 26.5 VOL% (42.0-52.0); Immature Granulocytes % 0.6 %; Immature Granulocytes Absolute 0.07 #; Lymphocytes # 0.8 10*3/uL (1.4-4.0); Lymphocytes % 6.1 % (21.2-54.2); Mean Corpuscular Hemoglobin 29 PG (27-34); Mean Corpuscular Volume 86.3 FL (87-102); Mean Platelet Volume 11.6 FL (9.6-12.0); Monocytes # 0.9 10*3/uL (0.11-0.8); Monocytes % 7.5 % (1.7-12.7); Neutrophils # 10.5 10*3/uL (1.4-7.4); Neutrophils % 85.7 % (38.7-73.9); Platelet Count 101 T/CUMM (130-400); Red Blood Count 3.07 MC/CUMM (3.8-5.5); Red Cell Distribution Width 23.9 % (9.3-17.3); White Blood Count 12.2 T/CUMM (4-12)
[2018-07-19 04:23] LABS: Anisocytosis 1+; Hypochromasia 1+; Microcytosis 1+; Ovalocytes Slight
[2018-07-19 04:24] LABS: Platelet Estimate Decreased
[2018-07-19 04:26] LABS: Albumin 3.5 G/DL (3.4-5.0); Bilirubin,Direct 0.24 MG/DL (0.0-0.20); Bilirubin,Total 0.7 MG/DL (0.2-1.0); Calcium 8.5 MG/DL (8.5-10.1); Osmolality,Calculated 291.7 MOS/KG (273-304); Potassium 5.3 MMOL/L (3.5-5.1); Total Protein 5.4 G/DL (6.4-8.3)
[2018-07-19 05:21] LABS: Troponin I 3.23 NG/ML (0.00-0.045)
[2018-07-19 05:22] LABS: ABG Base Excess -2.2 MMOL/L (-2.5-2.5); ABG HCO3 22.5 MMOL/L (20-26); ABG Oxygen Saturation 97.1 % (95-100); ABG PCO2 47.9 MM HG (35-48); ABG PH 7.312 (7.35-7.45); ABG PO2 92.6 MM HG (80-95); ABG TCO2 22.4 MMOL/L (23-27); Glucose Heart Surgery 141 MG/DL (74-106); Hematocrit Heart Surgery 29.1 PERCENT (42-52); Hemoglobin Heart Surgery 9.4 G/DL (14.0-18.0); Potassium Heart/CVR 4.9 MMOL/L (3.5-5.1)
[2018-07-19 05:56] LABS: ABG HCO3 22.7 MMOL/L (20-26); ABG Oxygen Saturation 97.7 % (95-100); ABG PCO2 47.5 MM HG (35-48); ABG PH 7.319 (7.35-7.45); ABG PO2 99.6 MM HG (80-95); ABG TCO2 22.4 MMOL/L (23-27); Glucose Heart Surgery 143 MG/DL (74-106); Hematocrit Heart Surgery 31.1 PERCENT (42-52)
[2018-07-19] MEDS ORDERED: AMINOCAPROIC ACID 5,000 MG/20 ML VIAL ONE (06:16)
[2018-07-19 08:04] LABS: ABG Base Excess -1.6 MMOL/L (-2.5-2.5); ABG HCO3 23.1 MMOL/L (20-26); ABG PCO2 50.3 MM HG (35-48); ABG PH 7.305 (7.35-7.45); ABG TCO2 23.3 MMOL/L (23-27); Glucose Heart Surgery 140 MG/DL (74-106); Hematocrit Heart Surgery 28.2 PERCENT (42-52); Hemoglobin Heart Surgery 9.1 G/DL (14.0-18.0); Potassium Heart/CVR 5.6 MMOL/L (3.5-5.1)
[2018-07-19] MEDS ORDERED: FUROSEMIDE 40 MG/4 ML VIAL IV ONE ×2 (08:24)
[2018-07-19] MEDS: CHLORHEXIDINE 0.12% ORAL RINSE 60 ML BOTTLE SWISH/SPIT SCH ×2 (09:00→20:12)
[2018-07-19] MEDS: CEFUROXIME INJ 1,500 MG in SYRINGE 1 EACH IV SCH ×2 (10:00→20:35)
[2018-07-19 11:35] LABS: ABG HCO3 24.5 MMOL/L (20-26); ABG Oxygen Saturation 99.2 % (95-100); ABG PCO2 40.4 MM HG (35-48); ABG PH 7.397 (7.35-7.45); ABG TCO2 22.9 MMOL/L (23-27); Glucose Heart Surgery 166 MG/DL (74-106); Potassium Heart/CVR 4.9 MMOL/L (3.5-5.1)
[2018-07-19] MEDS: SODIUM CHLORIDE 0.45% 1,000 ML IV SCH ×2 (13:01→13:32)
[2018-07-19] MEDS: INSULIN REGULAR 100 UNIT/ML SUBCUT SCH ×4 (13:07→23:17)
[2018-07-19 13:25] LABS: CKMB % 3.9 %
[2018-07-19 13:26] LABS: Troponin I 2.62 NG/ML (0.00-0.045)
[2018-07-20] MEDS: INSULIN REGULAR 100 UNIT/ML SUBCUT SCH ×4 (03:36→16:45)
[2018-07-20 03:56] LABS: Basophils % 0.1 % (0.0-0.8); Hematocrit 23.9 VOL% (42.0-52.0); Hemoglobin 7.8 GM/DL (14.0-18.0); Immature Granulocytes % 0.5 %; Immature Granulocytes Absolute 0.05 #; Lymphocytes # 0.6 10*3/uL (1.4-4.0); Lymphocytes % 5.7 % (21.2-54.2); Mean Corpuscular HGB Conc 32.6 GM/DL (32-36); Mean Corpuscular Hemoglobin 30 PG (27-34); Mean Corpuscular Volume 90.5 FL (87-102); Mean Platelet Volume 12.6 FL (9.6-12.0); Monocytes # 0.9 10*3/uL (0.11-0.8); Monocytes % 8.9 % (1.7-12.7); Neutrophils # 8.2 10*3/uL (1.4-7.4); Neutrophils % 84.8 % (38.7-73.9); Platelet Count 68 T/CUMM (130-400); Red Blood Count 2.64 MC/CUMM (3.8-5.5); Red Cell Distribution Width 24.2 % (9.3-17.3); White Blood Count 9.7 T/CUMM (4-12)
[2018-07-20 04:09] LABS: Alanine Aminotransferase 21 U/L (16-61); Albumin 3.2 G/DL (3.4-5.0); Alkaline Phosphatase 51 U/L (45-117); Aspartate Amino Transferase 30 U/L (0-37); Bilirubin,Total < 0.39 MG/DL (0.2-1.0); Blood Urea Nitrogen 34 MG/DL (7-18); Calcium 7.9 MG/DL (8.5-10.1); Glucose 198 MG/DL (74-106); Osmolality,Calculated 299.8 MOS/KG (273-304); Potassium 5.1 MMOL/L (3.5-5.1); Sodium 144 MMOL/L (136-145); Total Protein 5.2 G/DL (6.4-8.3)
[2018-07-20 04:59] LABS: Band Neutrophils 1 % (0-10); Hypochromasia 1+; Lymphocytes 6 % (20-55); Microcytosis 1+; Ovalocytes Slight; Platelet Estimate Decreased; Segmented Neutrophils 88 % (50-85); Total Cells Counted 100
[2018-07-20] MEDS ORDERED: FUROSEMIDE 40 MG/4 ML VIAL IV ONE (06:04)
[2018-07-20] MEDS: LEVOTHYROXINE 75 MCG TABLET PO SCH (07:05)
[2018-07-20] MEDS ORDERED: KETOROLAC 30 MG/1 ML VIAL IV PRN (07:06)
[2018-07-20] MEDS: MULTIVITAMIN (CENTRUM) TABLET PO SCH (08:40)
[2018-07-20] MEDS: EZETIMIBE 10 MG TABLET PO SCH (08:40)
[2018-07-20] MEDS: LOSARTAN 25 MG TABLET PO SCH (08:40)
[2018-07-20] MEDS: TAMSULOSIN 0.4 MG CAPSULE PO SCH ×2 (08:40→22:17)
[2018-07-20] MEDS: ASPIRIN EC 81 MG TABLET PO SCH (08:40)
[2018-07-20] MEDS: CHLORHEXIDINE 0.12% ORAL RINSE 60 ML BOTTLE SWISH/SPIT SCH ×3 (08:40→22:14)
[2018-07-20] MEDS: METOPROLOL SUCCINATE XL 50 MG TABLET PO SCH ×2 (08:41→09:13)
[2018-07-20 09:41] LABS: Hematocrit 28.6 VOL% (42.0-52.0); Hemoglobin 9.3 GM/DL (14.0-18.0)
[2018-07-20] MEDS: ACETAMINOPHEN 325 MG TABLET PO PRN (16:53)
[2018-07-20] MEDS ORDERED: ZALEPLON 5 MG CAPSULE PO PRN (17:59)
[2018-07-20] MEDS ORDERED: MAGNESIUM SULF RIDER 2 GM in PREMIX 1 EACH IV PRN (17:59)
[2018-07-20] MEDS ORDERED: MORPHINE 4 MG/1 ML VIAL IV PRN (17:59)
[2018-07-20] MEDS ORDERED: ONDANSETRON 4 MG/2 ML VIAL IV PRN (17:59)
[2018-07-20] MEDS ORDERED: MAGNESIUM SULF RIDER 4 GM in PREMIX 1 EACH IV PRN (17:59)
[2018-07-20] MEDS ORDERED: DEXTROSE 50% 25 GM/50 ML VIAL IV PRN ×2 (17:59)
[2018-07-20] MEDS ORDERED: ACETAMINOPHEN 325 MG TABLET PO PRN (17:59)
[2018-07-20] MEDS ORDERED: GLUCAGON 1 MG VIAL IM PRN ×2 (17:59)
[2018-07-20] MEDS ORDERED: SODIUM CHLOR 0.45% KCL 20 MEQ 20 MEQ/1,000 ML BAG IV SCH (17:59)
[2018-07-20] MEDS: glipiZIDE 10 MG TABLET PO SCH (18:58)
[2018-07-20] MEDS: PANTOPRAZOLE 40 MG TABLET PO SCH (18:58)
[2018-07-20] MEDS: FERROUS SULFATE 325 MG TABLET PO SCH (18:58)
[2018-07-20] MEDS: DOCUSATE SODIUM 100 MG CAPSULE PO SCH (18:58)
[2018-07-21] MEDS: oxyCODONE/ACETAMINOPHEN 5-325 MG TABLET PO PRN ×3 (00:54→18:40)
[2018-07-21 05:18] LABS: Basophils % 0.1 % (0.0-0.8); Eosinophils % 0.3 % (0.00-10.9); Hematocrit 26.1 VOL% (42.0-52.0); Hemoglobin 8.5 GM/DL (14.0-18.0); Immature Granulocytes % 0.3 %; Immature Granulocytes Absolute 0.03 #; Lymphocytes # 1.6 10*3/uL (1.4-4.0); Lymphocytes % 17.1 % (21.2-54.2); Mean Corpuscular HGB Conc 32.6 GM/DL (32-36); Mean Corpuscular Hemoglobin 30 PG (27-34); Mean Corpuscular Volume 91.3 FL (87-102); Mean Platelet Volume 12.4 FL (9.6-12.0); Monocytes # 0.9 10*3/uL (0.11-0.8); Monocytes % 10.2 % (1.7-12.7); Neutrophils # 6.6 10*3/uL (1.4-7.4); Platelet Count 70 T/CUMM (130-400); Red Blood Count 2.86 MC/CUMM (3.8-5.5); Red Cell Distribution Width 21.2 % (9.3-17.3); White Blood Count 9.2 T/CUMM (4-12)
[2018-07-21 05:26] LABS: Calcium 8.4 MG/DL (8.5-10.1); Osmolality,Calculated 293.4 MOS/KG (273-304); Potassium 4.4 MMOL/L (3.5-5.1)
[2018-07-21 05:31] LABS: Alanine Aminotransferase 21 U/L (16-61); Albumin 2.9 G/DL (3.4-5.0); Alkaline Phosphatase 56 U/L (45-117); Aspartate Amino Transferase 22 U/L (0-37); Bilirubin,Indirect 0.3 MG/DL (0.0-1.0); Blood Urea Nitrogen 37 MG/DL (7-18); Calcium 8.4 MG/DL (8.5-10.1); Glucose 212 MG/DL (74-106); Osmolality,Calculated 291.5 MOS/KG (273-304); Potassium 4.3 MMOL/L (3.5-5.1); Sodium 139 MMOL/L (136-145); Total Protein 5.4 G/DL (6.4-8.3)
[2018-07-21] MEDS ORDERED: FUROSEMIDE 40 MG/4 ML VIAL IV ONE (06:00)
[2018-07-21 06:08] LABS: Platelet Estimate Decreased; Polychromasia Few
[2018-07-21] MEDS: LEVOTHYROXINE 75 MCG TABLET PO SCH (06:46)
[2018-07-21] MEDS: ASPIRIN EC 81 MG TABLET PO SCH (09:39)
[2018-07-21] MEDS: MULTIVITAMIN (CENTRUM) TABLET PO SCH (09:39)
[2018-07-21] MEDS: DOCUSATE SODIUM 100 MG CAPSULE PO SCH (09:39)
[2018-07-21] MEDS: LOSARTAN 25 MG TABLET PO SCH (09:39)
[2018-07-21] MEDS: glipiZIDE 10 MG TABLET PO SCH ×2 (09:39→16:19)
[2018-07-21] MEDS: TAMSULOSIN 0.4 MG CAPSULE PO SCH ×2 (09:39→21:40)
[2018-07-21] MEDS: METOPROLOL SUCCINATE XL 50 MG TABLET PO SCH (09:39)
[2018-07-21] MEDS: PANTOPRAZOLE 40 MG TABLET PO SCH (09:39)
[2018-07-21] MEDS: FERROUS SULFATE 325 MG TABLET PO SCH (09:39)
[2018-07-21] MEDS: EZETIMIBE 10 MG TABLET PO SCH (09:40)
[2018-07-21] MEDS: CHLORHEXIDINE 0.12% ORAL RINSE 60 ML BOTTLE SWISH/SPIT SCH ×2 (09:40→21:41)
[2018-07-21] MEDS: INSULIN GLARGINE 100 UNIT/ML SUBCUT SCH ×2 (12:44→21:40)
[2018-07-21] MEDS: ALBUTEROL 1.25 MG/3 ML NEB RESP TX SCH ×2 (13:52→19:27)
[2018-07-21] MEDS ORDERED: DEXTROSE 50% 25 GM/50 ML SYRINGE IV PRN (15:24)
[2018-07-21] MEDS ORDERED: GLUCAGON 1 MG VIAL IM PRN (15:24)
[2018-07-21] MEDS: INSULIN REGULAR 100 UNIT/ML SUBCUT SCH ×2 (16:19→21:41)
[2018-07-21] MEDS ORDERED: INSULIN REGULAR 100 UNIT/ML SUBCUT SCH (16:30)
[2018-07-22] MEDS: oxyCODONE/ACETAMINOPHEN 5-325 MG TABLET PO PRN ×5 (01:39→21:44)
[2018-07-22] MEDS: ALBUTEROL 1.25 MG/3 ML NEB RESP TX SCH ×4 (02:30→19:44)
[2018-07-22 05:42] LABS: Basophils % 0.2 % (0.0-0.8); Eosinophils # 0.2 10*3/uL (0.0-0.87); Eosinophils % 1.8 % (0.00-10.9); Hematocrit 25.8 VOL% (42.0-52.0); Hemoglobin 8.5 GM/DL (14.0-18.0); Immature Granulocytes % 0.7 %; Immature Granulocytes Absolute 0.06 #; Lymphocytes # 1.4 10*3/uL (1.4-4.0); Lymphocytes % 16.4 % (21.2-54.2); Mean Corpuscular HGB Conc 32.9 GM/DL (32-36); Mean Corpuscular Hemoglobin 30 PG (27-34); Mean Corpuscular Volume 90.2 FL (87-102); Mean Platelet Volume 11.6 FL (9.6-12.0); Monocytes # 0.7 10*3/uL (0.11-0.8); Monocytes % 8.1 % (1.7-12.7); Neutrophils % 72.8 % (38.7-73.9); Platelet Count 89 T/CUMM (130-400); Red Blood Count 2.86 MC/CUMM (3.8-5.5); Red Cell Distribution Width 19.6 % (9.3-17.3); White Blood Count 8.3 T/CUMM (4-12)
[2018-07-22 06:06] LABS: Calcium 8.2 MG/DL (8.5-10.1); Osmolality,Calculated 285.4 MOS/KG (273-304); Potassium 3.8 MMOL/L (3.5-5.1)
[2018-07-22 06:10] LABS: Alanine Aminotransferase 20 U/L (16-61); Albumin 2.9 G/DL (3.4-5.0); Alkaline Phosphatase 63 U/L (45-117); Aspartate Amino Transferase 17 U/L (0-37); Bilirubin,Indirect 0.4 MG/DL (0.0-1.0); Blood Urea Nitrogen 26 MG/DL (7-18); Calcium 8.3 MG/DL (8.5-10.1); Glucose 133 MG/DL (74-106); Osmolality,Calculated 281.7 MOS/KG (273-304); Potassium 3.7 MMOL/L (3.5-5.1); Sodium 138 MMOL/L (136-145); Total Protein 5.6 G/DL (6.4-8.3)
[2018-07-22 06:11] LABS: Troponin I 0.861 NG/ML (0.00-0.045)
[2018-07-22] MEDS: LEVOTHYROXINE 75 MCG TABLET PO SCH (06:31)
[2018-07-22] MEDS: INSULIN REGULAR 100 UNIT/ML SUBCUT SCH ×4 (09:50→21:45)
[2018-07-22] MEDS: glipiZIDE 10 MG TABLET PO SCH ×2 (09:50→18:41)
[2018-07-22] MEDS: LOSARTAN 25 MG TABLET PO SCH (09:51)
[2018-07-22] MEDS: ASPIRIN EC 81 MG TABLET PO SCH (09:51)
[2018-07-22] MEDS: FERROUS SULFATE 325 MG TABLET PO SCH (09:51)
[2018-07-22] MEDS: MULTIVITAMIN (CENTRUM) TABLET PO SCH (09:51)
[2018-07-22] MEDS: DOCUSATE SODIUM 100 MG CAPSULE PO SCH (09:51)
[2018-07-22] MEDS: METOPROLOL SUCCINATE XL 50 MG TABLET PO SCH (09:52)
[2018-07-22] MEDS: PANTOPRAZOLE 40 MG TABLET PO SCH (09:52)
[2018-07-22] MEDS: EZETIMIBE 10 MG TABLET PO SCH (09:52)
[2018-07-22] MEDS: CHLORHEXIDINE 0.12% ORAL RINSE 60 ML BOTTLE SWISH/SPIT SCH ×2 (09:52→21:45)
[2018-07-22] MEDS: TAMSULOSIN 0.4 MG CAPSULE PO SCH ×2 (09:52→21:44)
[2018-07-22] MEDS: MAGNESIUM HYDROXIDE SUSP 30 ML UDCUP PO PRN (09:59)
[2018-07-22] MEDS: INSULIN GLARGINE 100 UNIT/ML SUBCUT SCH ×2 (10:01→21:45)
[2018-07-23] MEDS: ALBUTEROL 1.25 MG/3 ML NEB RESP TX SCH ×4 (01:43→18:50)
[2018-07-23] MEDS: LEVOTHYROXINE 75 MCG TABLET PO SCH (06:05)
[2018-07-23] MEDS: oxyCODONE/ACETAMINOPHEN 5-325 MG TABLET PO PRN ×2 (09:46→21:39)
[2018-07-23] MEDS: CHLORHEXIDINE 0.12% ORAL RINSE 60 ML BOTTLE SWISH/SPIT SCH ×2 (09:48→21:43)
[2018-07-23] MEDS: METOPROLOL SUCCINATE XL 50 MG TABLET PO SCH (09:48)
[2018-07-23] MEDS: LOSARTAN 25 MG TABLET PO SCH (09:48)
[2018-07-23] MEDS: MULTIVITAMIN (CENTRUM) TABLET PO SCH (09:48)
[2018-07-23] MEDS: ASPIRIN EC 81 MG TABLET PO SCH (09:48)
[2018-07-23] MEDS: PANTOPRAZOLE 40 MG TABLET PO SCH (09:48)
[2018-07-23] MEDS: EZETIMIBE 10 MG TABLET PO SCH (09:48)
[2018-07-23] MEDS: glipiZIDE 10 MG TABLET PO SCH ×2 (09:49→16:34)
[2018-07-23] MEDS: INSULIN REGULAR 100 UNIT/ML SUBCUT SCH ×4 (09:50→21:38)
[2018-07-23] MEDS: TAMSULOSIN 0.4 MG CAPSULE PO SCH ×2 (09:50→21:39)
[2018-07-23] MEDS: DOCUSATE SODIUM 100 MG CAPSULE PO SCH (09:50)
[2018-07-23] MEDS: FERROUS SULFATE 325 MG TABLET PO SCH (09:50)
[2018-07-23] MEDS: INSULIN GLARGINE 100 UNIT/ML SUBCUT SCH ×2 (09:51→21:42)
[2018-07-23] MEDS: MAGNESIUM HYDROXIDE SUSP 30 ML UDCUP PO PRN ×2 (09:56→21:46)
[2018-07-23] MEDS: ALUMINUM/MAGNES/SIMETH MAX STR 30 ML UDCUP PO PRN (22:15)
[2018-07-24] MEDS: ALBUTEROL 1.25 MG/3 ML NEB RESP TX SCH ×4 (00:37→18:45)
[2018-07-24] MEDS: oxyCODONE/ACETAMINOPHEN 5-325 MG TABLET PO PRN (04:31)
[2018-07-24 05:17] LABS: Basophils % 0.5 % (0.0-0.8); Eosinophils # 0.2 10*3/uL (0.0-0.87); Eosinophils % 2.2 % (0.00-10.9); Hematocrit 30.8 VOL% (42.0-52.0); Hemoglobin 10.1 GM/DL (14.0-18.0); Immature Granulocytes % 1.2 %; Lymphocytes # 1.6 10*3/uL (1.4-4.0); Lymphocytes % 19.4 % (21.2-54.2); Mean Corpuscular HGB Conc 32.8 GM/DL (32-36); Mean Corpuscular Hemoglobin 29 PG (27-34); Mean Corpuscular Volume 89.8 FL (87-102); Mean Platelet Volume 11.5 FL (9.6-12.0); Monocytes # 0.8 10*3/uL (0.11-0.8); Neutrophils # 5.6 10*3/uL (1.4-7.4); Neutrophils % 66.7 % (38.7-73.9); Platelet Count 159 T/CUMM (130-400); Red Blood Count 3.43 MC/CUMM (3.8-5.5); Red Cell Distribution Width 19.7 % (9.3-17.3); White Blood Count 8.3 T/CUMM (4-12)
[2018-07-24 05:34] LABS: Alanine Aminotransferase 20 U/L (16-61); Albumin 3.2 G/DL (3.4-5.0); Alkaline Phosphatase 80 U/L (45-117); Aspartate Amino Transferase 16 U/L (0-37); Bilirubin,Indirect 0.5 MG/DL (0.0-1.0); Blood Urea Nitrogen 24 MG/DL (7-18); Calcium 8.6 MG/DL (8.5-10.1); Glucose 126 MG/DL (74-106); Osmolality,Calculated 282.5 MOS/KG (273-304); Potassium 3.7 MMOL/L (3.5-5.1); Sodium 139 MMOL/L (136-145); Total Protein 6.5 G/DL (6.4-8.3); Troponin I 0.323 NG/ML (0.00-0.045)
[2018-07-24] MEDS: LEVOTHYROXINE 75 MCG TABLET PO SCH (06:18)
[2018-07-24] MEDS: FERROUS SULFATE 325 MG TABLET PO SCH (09:28)
[2018-07-24] MEDS: INSULIN GLARGINE 100 UNIT/ML SUBCUT SCH ×2 (09:28→21:53)
[2018-07-24] MEDS: TAMSULOSIN 0.4 MG CAPSULE PO SCH ×2 (09:29→21:52)
[2018-07-24] MEDS: LOSARTAN 25 MG TABLET PO SCH (09:29)
[2018-07-24] MEDS: EZETIMIBE 10 MG TABLET PO SCH (09:29)
[2018-07-24] MEDS: PANTOPRAZOLE 40 MG TABLET PO SCH (09:29)
[2018-07-24] MEDS: MULTIVITAMIN (CENTRUM) TABLET PO SCH (09:29)
[2018-07-24] MEDS: CHLORHEXIDINE 0.12% ORAL RINSE 60 ML BOTTLE SWISH/SPIT SCH ×2 (09:29→21:57)
[2018-07-24] MEDS: METOPROLOL SUCCINATE XL 50 MG TABLET PO SCH (09:29)
[2018-07-24] MEDS: DOCUSATE SODIUM 100 MG CAPSULE PO SCH (09:29)
[2018-07-24] MEDS: ASPIRIN EC 81 MG TABLET PO SCH (09:29)
[2018-07-24] MEDS: INSULIN REGULAR 100 UNIT/ML SUBCUT SCH ×4 (09:29→21:53)
[2018-07-24] MEDS: glipiZIDE 10 MG TABLET PO SCH ×2 (09:29→18:25)
[2018-07-24] MEDS: ALUMINUM/MAGNES/SIMETH MAX STR 30 ML UDCUP PO PRN (19:17)
[2018-07-24] MEDS ORDERED: AMIODARONE INJ 150 MG in DEXTROSE 5% 100 ML IV ONE (20:26)
[2018-07-24] MEDS ORDERED: AMIODARONE INJ 450 MG in DEXTROSE 5% 241 ML IV SCH (20:30)
[2018-07-24] MEDS ORDERED: SERTRALINE 25 MG TABLET PO SCH (21:00)
[2018-07-24] MEDS ORDERED: AMIODARONE 150 MG/3 ML VIAL ONE (21:31)
[2018-07-24] MEDS: ACETAMINOPHEN 325 MG TABLET PO PRN (21:52)
[2018-07-25] MEDS: ALBUTEROL 1.25 MG/3 ML NEB RESP TX SCH ×4 (00:20→19:01)
[2018-07-25] MEDS ORDERED: AMIODARONE INJ 450 MG in DEXTROSE 5% 241 ML IV SCH (03:00)
[2018-07-25 04:12] LABS: Basophils % 0.4 % (0.0-0.8); Eosinophils # 0.1 10*3/uL (0.0-0.87); Eosinophils % 1.1 % (0.00-10.9); Hematocrit 30.3 VOL% (42.0-52.0); Hemoglobin 9.8 GM/DL (14.0-18.0); Immature Granulocytes % 1.4 %; Immature Granulocytes Absolute 0.13 #; Lymphocytes # 1.4 10*3/uL (1.4-4.0); Lymphocytes % 15.4 % (21.2-54.2); Mean Corpuscular HGB Conc 32.3 GM/DL (32-36); Mean Corpuscular Hemoglobin 29 PG (27-34); Mean Corpuscular Volume 90.7 FL (87-102); Mean Platelet Volume 11.3 FL (9.6-12.0); Monocytes # 0.9 10*3/uL (0.11-0.8); Monocytes % 10.4 % (1.7-12.7); Neutrophils # 6.4 10*3/uL (1.4-7.4); Neutrophils % 71.3 % (38.7-73.9); Platelet Count 165 T/CUMM (130-400); Red Blood Count 3.34 MC/CUMM (3.8-5.5); Red Cell Distribution Width 19.5 % (9.3-17.3)
[2018-07-25 04:30] LABS: Alanine Aminotransferase 18 U/L (16-61); Albumin 3.1 G/DL (3.4-5.0); Alkaline Phosphatase 77 U/L (45-117); Aspartate Amino Transferase 17 U/L (0-37); Bilirubin,Indirect 0.7 MG/DL (0.0-1.0); Calcium 8.4 MG/DL (8.5-10.1); Osmolality,Calculated 282.5 MOS/KG (273-304); Total Protein 5.8 G/DL (6.4-8.3); Total Protein 6.2 G/DL (6.4-8.3)
[2018-07-25 04:31] LABS: Troponin I 0.181 NG/ML (0.00-0.045)
[2018-07-25] MEDS: LEVOTHYROXINE 75 MCG TABLET PO SCH (06:24)
[2018-07-25] MEDS: TAMSULOSIN 0.4 MG CAPSULE PO SCH ×2 (08:36→21:48)
[2018-07-25] MEDS: MULTIVITAMIN (CENTRUM) TABLET PO SCH (08:36)
[2018-07-25] MEDS: DOCUSATE SODIUM 100 MG CAPSULE PO SCH (08:36)
[2018-07-25] MEDS: AMIODARONE 200 MG TABLET PO SCH ×2 (08:36→21:49)
[2018-07-25] MEDS: ASPIRIN EC 81 MG TABLET PO SCH (08:36)
[2018-07-25] MEDS: PANTOPRAZOLE 40 MG TABLET PO SCH (08:36)
[2018-07-25] MEDS: EZETIMIBE 10 MG TABLET PO SCH (08:36)
[2018-07-25] MEDS: METOPROLOL SUCCINATE XL 50 MG TABLET PO SCH (08:36)
[2018-07-25] MEDS: glipiZIDE 10 MG TABLET PO SCH ×2 (08:36→15:36)
[2018-07-25] MEDS: INSULIN GLARGINE 100 UNIT/ML SUBCUT SCH ×2 (08:37→21:53)
[2018-07-25] MEDS: CHLORHEXIDINE 0.12% ORAL RINSE 60 ML BOTTLE SWISH/SPIT SCH ×2 (08:37→22:08)
[2018-07-25] MEDS: INSULIN REGULAR 100 UNIT/ML SUBCUT SCH ×4 (08:42→21:53)
[2018-07-25] MEDS: FERROUS SULFATE 325 MG TABLET PO SCH (08:43)
[2018-07-25] MEDS: ACETAMINOPHEN 325 MG TABLET PO PRN ×2 (15:46→21:49)
[2018-07-26] MEDS: ALBUTEROL 1.25 MG/3 ML NEB RESP TX SCH ×4 (00:46→18:55)
[2018-07-26 04:15] LABS: Basophils % 0.3 % (0.0-0.8); Eosinophils # 0.1 10*3/uL (0.0-0.87); Eosinophils % 1.8 % (0.00-10.9); Hematocrit 28.7 VOL% (42.0-52.0); Hemoglobin 9.4 GM/DL (14.0-18.0); Immature Granulocytes % 1.6 %; Immature Granulocytes Absolute 0.11 #; Lymphocytes # 1.3 10*3/uL (1.4-4.0); Mean Corpuscular HGB Conc 32.8 GM/DL (32-36); Mean Corpuscular Hemoglobin 30 PG (27-34); Mean Corpuscular Volume 91.1 FL (87-102); Mean Platelet Volume 11.5 FL (9.6-12.0); Monocytes # 0.8 10*3/uL (0.11-0.8); Monocytes % 11.7 % (1.7-12.7); Neutrophils # 4.7 10*3/uL (1.4-7.4); Neutrophils % 66.6 % (38.7-73.9); Platelet Count 173 T/CUMM (130-400); Red Blood Count 3.15 MC/CUMM (3.8-5.5); Red Cell Distribution Width 19.8 % (9.3-17.3); White Blood Count 7.1 T/CUMM (4-12)
[2018-07-26 04:42] LABS: Calcium 8.3 MG/DL (8.5-10.1); Osmolality,Calculated 278.5 MOS/KG (273-304); Potassium 3.3 MMOL/L (3.5-5.1)
[2018-07-26] MEDS: LEVOTHYROXINE 75 MCG TABLET PO SCH (06:25)
[2018-07-26] MEDS: POTASSIUM CHLORIDE 20 MEQ TABLET PO PRN ×3 (06:26→12:56)
[2018-07-26] MEDS: INSULIN REGULAR 100 UNIT/ML SUBCUT SCH ×4 (08:36→21:58)
[2018-07-26] MEDS: DOCUSATE SODIUM 100 MG CAPSULE PO SCH (09:17)
[2018-07-26] MEDS: glipiZIDE 10 MG TABLET PO SCH ×2 (09:17→17:53)
[2018-07-26] MEDS: EZETIMIBE 10 MG TABLET PO SCH (09:18)
[2018-07-26] MEDS: PANTOPRAZOLE 40 MG TABLET PO SCH (09:18)
[2018-07-26] MEDS: TAMSULOSIN 0.4 MG CAPSULE PO SCH ×2 (09:18→21:55)
[2018-07-26] MEDS: METOPROLOL SUCCINATE XL 50 MG TABLET PO SCH (09:18)
[2018-07-26] MEDS: ASPIRIN EC 81 MG TABLET PO SCH (09:18)
[2018-07-26] MEDS: MULTIVITAMIN (CENTRUM) TABLET PO SCH (09:18)
[2018-07-26] MEDS: FERROUS SULFATE 325 MG TABLET PO SCH (09:18)
[2018-07-26] MEDS: AMIODARONE 200 MG TABLET PO SCH ×2 (09:18→21:55)
[2018-07-26] MEDS: CHLORHEXIDINE 0.12% ORAL RINSE 60 ML BOTTLE SWISH/SPIT SCH ×2 (09:22→21:59)
[2018-07-26] MEDS: INSULIN GLARGINE 100 UNIT/ML SUBCUT SCH ×2 (09:24→21:58)
[2018-07-26] MEDS: ALUMINUM/MAGNES/SIMETH MAX STR 30 ML UDCUP PO PRN ×2 (12:57→22:00)
[2018-07-26] MEDS: ACETAMINOPHEN 325 MG TABLET PO PRN (21:55)
[2018-07-27] MEDS: ALBUTEROL 1.25 MG/3 ML NEB RESP TX SCH ×2 (00:09→07:10)
[2018-07-27 03:40] LABS: Basophils % 0.5 % (0.0-0.8); Eosinophils # 0.1 10*3/uL (0.0-0.87); Eosinophils % 1.5 % (0.00-10.9); Hematocrit 27.9 VOL% (42.0-52.0); Hemoglobin 8.9 GM/DL (14.0-18.0); Immature Granulocytes % 1.4 %; Immature Granulocytes Absolute 0.08 #; Lymphocytes # 1.2 10*3/uL (1.4-4.0); Lymphocytes % 19.9 % (21.2-54.2); Mean Corpuscular HGB Conc 31.9 GM/DL (32-36); Mean Corpuscular Hemoglobin 30 PG (27-34); Mean Corpuscular Volume 92.4 FL (87-102); Mean Platelet Volume 10.9 FL (9.6-12.0); Monocytes # 0.7 10*3/uL (0.11-0.8); Monocytes % 12.1 % (1.7-12.7); Neutrophils # 3.8 10*3/uL (1.4-7.4); Neutrophils % 64.6 % (38.7-73.9); Platelet Count 185 T/CUMM (130-400); Red Blood Count 3.02 MC/CUMM (3.8-5.5); Red Cell Distribution Width 19.9 % (9.3-17.3); White Blood Count 5.9 T/CUMM (4-12)
[2018-07-27 03:59] LABS: Osmolality,Calculated 281.4 MOS/KG (273-304); Potassium 3.5 MMOL/L (3.5-5.1)
[2018-07-27] MEDS: LEVOTHYROXINE 75 MCG TABLET PO SCH (06:25)
[2018-07-27] MEDS: POTASSIUM CHLORIDE 20 MEQ TABLET PO PRN ×2 (06:26→09:43)
[2018-07-27 08:16] VITALS: BP 132/66
[2018-07-27] MEDS ORDERED: INFLUENZA VIRUS VACCINE 0.5 ML SYRINGE IM ONE (09:38)
[2018-07-27] MEDS: INSULIN GLARGINE 100 UNIT/ML SUBCUT SCH (09:41)
[2018-07-27] MEDS: PANTOPRAZOLE 40 MG TABLET PO SCH (09:42)
[2018-07-27] MEDS: EZETIMIBE 10 MG TABLET PO SCH (09:42)
[2018-07-27] MEDS: DOCUSATE SODIUM 100 MG CAPSULE PO SCH (09:42)
[2018-07-27] MEDS: ASPIRIN EC 81 MG TABLET PO SCH (09:42)
[2018-07-27] MEDS: FERROUS SULFATE 325 MG TABLET PO SCH (09:42)
[2018-07-27] MEDS: AMIODARONE 200 MG TABLET PO SCH (09:42)
[2018-07-27] MEDS: MULTIVITAMIN (CENTRUM) TABLET PO SCH (09:42)
[2018-07-27] MEDS: TAMSULOSIN 0.4 MG CAPSULE PO SCH (09:42)
[2018-07-27] MEDS: glipiZIDE 10 MG TABLET PO SCH (09:43)
[2018-07-27] MEDS: CHLORHEXIDINE 0.12% ORAL RINSE 60 ML BOTTLE SWISH/SPIT SCH (09:43)
[2018-07-27] MEDS: METOPROLOL SUCCINATE XL 50 MG TABLET PO SCH (09:43)
[2018-07-27] MEDS: INSULIN REGULAR 100 UNIT/ML SUBCUT SCH (09:43)
[2018-07-28] MEDS ORDERED: AMIODARONE 200 MG TABLET PO SCH (09:00)
== END 2018-07-27 11:37 | disposition home or self-care (01) | DRG 236 ==
LOC: N.4E 13:16 → N.CVR 07-18 07:25 → N.ICU 07-19 10:56 → N.TELES 07-20 17:56

== ENCOUNTER 2018-08-09 03:59 | Observation (INO) ==
[2018-08-09 04:41] LABS: Basophils # 0.1 10*3/uL (0.0-0.2); Basophils % 0.8 % (0.0-0.8); Eosinophils # 0.2 10*3/uL (0.0-0.87); Eosinophils % 2.6 % (0.00-10.9); Hematocrit 36.6 VOL% (42.0-52.0); Hemoglobin 11.5 GM/DL (14.0-18.0); Immature Granulocytes % 0.3 %; Immature Granulocytes Absolute 0.02 #; Lymphocytes # 1.1 10*3/uL (1.4-4.0); Lymphocytes % 13.5 % (21.2-54.2); Mean Corpuscular HGB Conc 31.4 GM/DL (32-36); Mean Corpuscular Hemoglobin 31 PG (27-34); Mean Corpuscular Volume 97.1 FL (87-102); Mean Platelet Volume 10.9 FL (9.6-12.0); Monocytes # 0.8 10*3/uL (0.11-0.8); Monocytes % 9.8 % (1.7-12.7); Neutrophils # 5.7 10*3/uL (1.4-7.4); Platelet Count 155 T/CUMM (130-400); Red Blood Count 3.77 MC/CUMM (3.8-5.5); Red Cell Distribution Width 18.6 % (9.3-17.3); White Blood Count 7.8 T/CUMM (4-12)
[2018-08-09 05:07] LABS: Albumin 3.4 G/DL (3.4-5.0); Bilirubin,Total 0.9 MG/DL (0.2-1.0); Calcium 8.9 MG/DL (8.5-10.1); Osmolality,Calculated 289.8 MOS/KG (273-304); Potassium 4.5 MMOL/L (3.5-5.1); Total Protein 6.7 G/DL (6.4-8.3)
[2018-08-09] MEDS ORDERED: ONDANSETRON 4 MG/2 ML VIAL IV PRN (05:59)
[2018-08-09] MEDS ORDERED: FUROSEMIDE 40 MG/4 ML VIAL IV STA (09:16)
[2018-08-09] MEDS ORDERED: NITROGLYCERIN SL 0.4 MG TABLET SL PRN (09:24)
[2018-08-09] MEDS: ALBUTEROL/IPRATROPIUM 3 ML NEB RESP TX SCH ×3 (11:00→19:37)
[2018-08-09 11:26] LABS: Albumin 3.5 G/DL (3.4-5.0); Bilirubin,Total 0.5 MG/DL (0.2-1.0); Calcium 9.3 MG/DL (8.5-10.1); Osmolality,Calculated 284.1 MOS/KG (273-304); Potassium 4.1 MMOL/L (3.5-5.1); Total Protein 7.2 G/DL (6.4-8.3)
[2018-08-09] MEDS ORDERED: DEXTROSE 50% 25 GM/50 ML SYRINGE IV PRN (16:38)
[2018-08-09] MEDS ORDERED: GLUCAGON 1 MG VIAL IM PRN (16:38)
[2018-08-09] MEDS: glipiZIDE 10 MG TABLET PO SCH (16:53)
[2018-08-09] MEDS: PANTOPRAZOLE 40 MG TABLET PO SCH (19:57)
[2018-08-09 21:00] LABS: Basophils # 0.1 10*3/uL (0.0-0.2); Basophils % 0.7 % (0.0-0.8); Eosinophils # 0.2 10*3/uL (0.0-0.87); Hematocrit 34.9 VOL% (42.0-52.0); Hemoglobin 10.7 GM/DL (14.0-18.0); Immature Granulocytes % 0.3 %; Immature Granulocytes Absolute 0.02 #; Lymphocytes # 1.7 10*3/uL (1.4-4.0); Lymphocytes % 22.7 % (21.2-54.2); Mean Corpuscular HGB Conc 30.7 GM/DL (32-36); Mean Corpuscular Hemoglobin 31 PG (27-34); Mean Corpuscular Volume 99.4 FL (87-102); Mean Platelet Volume 11.6 FL (9.6-12.0); Monocytes # 0.9 10*3/uL (0.11-0.8); Neutrophils # 4.6 10*3/uL (1.4-7.4); Neutrophils % 62.3 % (38.7-73.9); Platelet Count 100 T/CUMM (130-400); Red Blood Count 3.51 MC/CUMM (3.8-5.5); Red Cell Distribution Width 18.5 % (9.3-17.3); White Blood Count 7.4 T/CUMM (4-12)
[2018-08-09] MEDS ORDERED: ZALEPLON 5 MG CAPSULE PO PRN (21:00)
[2018-08-09] MEDS: SERTRALINE 25 MG TABLET PO SCH (21:24)
[2018-08-09] MEDS: ATORVASTATIN 20 MG TABLET PO SCH (21:24)
[2018-08-09] MEDS: INSULIN GLARGINE 100 UNIT/ML SUBCUT SCH (21:25)
[2018-08-09] MEDS: TAMSULOSIN 0.4 MG CAPSULE PO SCH (21:28)
[2018-08-09 22:22] LABS: Polychromasia Few
[2018-08-09 22:23] LABS: Hypochromasia 1+; Ovalocytes 1+; Platelet Estimate Normal
[2018-08-10] MEDS: ALBUTEROL/IPRATROPIUM 3 ML NEB RESP TX SCH ×4 (00:06→19:27)
[2018-08-10 04:17] LABS: ABG Base Excess 5.6 MMOL/L (-2.5-2.5); ABG HCO3 29.4 MMOL/L (20-26); ABG Oxygen Saturation 94.3 % (95-100); ABG PCO2 36.5 MM HG (35-48); ABG PH 7.506 (7.35-7.45); ABG PO2 65.3 MM HG (80-95); ABG TCO2 25.9 MMOL/L (23-27); Allen Test Positive; Pt O2 Delivery Device Room Air
[2018-08-10 04:51] LABS: Basophils % 0.6 % (0.0-0.8); Eosinophils # 0.1 10*3/uL (0.0-0.87); Eosinophils % 1.4 % (0.00-10.9); Hematocrit 31.4 VOL% (42.0-52.0); Hemoglobin 10.1 GM/DL (14.0-18.0); Immature Granulocytes % 0.4 %; Immature Granulocytes Absolute 0.03 #; Lymphocytes % 13.6 % (21.2-54.2); Mean Corpuscular HGB Conc 32.2 GM/DL (32-36); Mean Corpuscular Hemoglobin 31 PG (27-34); Mean Corpuscular Volume 94.9 FL (87-102); Monocytes # 0.7 10*3/uL (0.11-0.8); Monocytes % 9.3 % (1.7-12.7); Neutrophils # 5.4 10*3/uL (1.4-7.4); Neutrophils % 74.7 % (38.7-73.9); Platelet Count 151 T/CUMM (130-400); Red Blood Count 3.31 MC/CUMM (3.8-5.5); Red Cell Distribution Width 18.2 % (9.3-17.3); White Blood Count 7.2 T/CUMM (4-12)
[2018-08-10 05:14] LABS: Albumin 2.8 G/DL (3.4-5.0); Bilirubin,Total 0.6 MG/DL (0.2-1.0); Calcium 8.4 MG/DL (8.5-10.1); Osmolality,Calculated 284.1 MOS/KG (273-304); Potassium 3.5 MMOL/L (3.5-5.1); Total Protein 6.1 G/DL (6.4-8.3)
[2018-08-10] MEDS: LEVOTHYROXINE 75 MCG TABLET PO SCH (06:37)
[2018-08-10] MEDS ORDERED: FUROSEMIDE 40 MG TABLET PO SCH (09:00)
[2018-08-10] MEDS: TAMSULOSIN 0.4 MG CAPSULE PO SCH ×2 (09:26→22:00)
[2018-08-10] MEDS: ASPIRIN EC 81 MG TABLET PO SCH (09:26)
[2018-08-10] MEDS: glipiZIDE 10 MG TABLET PO SCH ×2 (09:26→16:56)
[2018-08-10] MEDS: LOSARTAN 50 MG TABLET PO SCH (09:26)
[2018-08-10] MEDS: MULTIVITAMIN (CENTRUM) TABLET PO SCH (09:26)
[2018-08-10] MEDS: PANTOPRAZOLE 40 MG TABLET PO SCH (09:27)
[2018-08-10] MEDS: INSULIN GLARGINE 100 UNIT/ML SUBCUT SCH ×2 (09:27→22:20)
[2018-08-10] MEDS: METOPROLOL SUCCINATE XL 100 MG TABLET PO SCH (09:27)
[2018-08-10] MEDS ORDERED: metOLazone 5 MG TABLET PO SCH (15:30)
[2018-08-10] MEDS: FUROSEMIDE 40 MG TABLET PO SCH (16:56)
[2018-08-10] MEDS: ATORVASTATIN 20 MG TABLET PO SCH (22:00)
[2018-08-10] MEDS: SERTRALINE 25 MG TABLET PO SCH (22:00)
[2018-08-11] MEDS: ALUMINUM/MAGNES/SIMETH MAX STR 30 ML UDCUP PO PRN ×2 (00:12→14:48)
[2018-08-11] MEDS: ALBUTEROL/IPRATROPIUM 3 ML NEB RESP TX SCH ×4 (01:28→19:00)
[2018-08-11] MEDS: LEVOTHYROXINE 75 MCG TABLET PO SCH (07:01)
[2018-08-11] MEDS: FUROSEMIDE 40 MG TABLET PO SCH ×2 (08:33→17:31)
[2018-08-11] MEDS: ASPIRIN EC 81 MG TABLET PO SCH (08:33)
[2018-08-11] MEDS: glipiZIDE 10 MG TABLET PO SCH ×2 (08:33→17:31)
[2018-08-11] MEDS: MULTIVITAMIN (CENTRUM) TABLET PO SCH (08:34)
[2018-08-11] MEDS: INSULIN GLARGINE 100 UNIT/ML SUBCUT SCH ×2 (08:34→21:50)
[2018-08-11] MEDS: PANTOPRAZOLE 40 MG TABLET PO SCH (08:34)
[2018-08-11] MEDS: METOPROLOL SUCCINATE XL 100 MG TABLET PO SCH (08:34)
[2018-08-11] MEDS: TAMSULOSIN 0.4 MG CAPSULE PO SCH ×2 (08:34→21:50)
[2018-08-11] MEDS: LOSARTAN 50 MG TABLET PO SCH (08:34)
[2018-08-11] MEDS ORDERED: ACETAMINOPHEN 325 MG TABLET PO PRN (10:47)
[2018-08-11] MEDS: SERTRALINE 25 MG TABLET PO SCH (21:50)
[2018-08-11] MEDS: ATORVASTATIN 20 MG TABLET PO SCH (21:50)
[2018-08-11] MEDS: oxyCODONE/ACETAMINOPHEN 5-325 MG TABLET PO PRN (21:55)
[2018-08-12] MEDS: ALBUTEROL/IPRATROPIUM 3 ML NEB RESP TX SCH ×2 (00:16→07:11)
[2018-08-12 05:34] VITALS: BP 109/57
[2018-08-12] MEDS: oxyCODONE/ACETAMINOPHEN 5-325 MG TABLET PO PRN (06:15)
[2018-08-12] MEDS: LEVOTHYROXINE 75 MCG TABLET PO SCH (06:43)
[2018-08-12] MEDS: PANTOPRAZOLE 40 MG TABLET PO SCH (08:36)
[2018-08-12] MEDS: FUROSEMIDE 40 MG TABLET PO SCH (08:36)
[2018-08-12] MEDS: MULTIVITAMIN (CENTRUM) TABLET PO SCH (08:36)
[2018-08-12] MEDS: LOSARTAN 50 MG TABLET PO SCH (08:36)
[2018-08-12] MEDS: ASPIRIN EC 81 MG TABLET PO SCH (08:36)
[2018-08-12] MEDS: glipiZIDE 10 MG TABLET PO SCH (08:36)
[2018-08-12] MEDS: METOPROLOL SUCCINATE XL 100 MG TABLET PO SCH (08:36)
[2018-08-12] MEDS: TAMSULOSIN 0.4 MG CAPSULE PO SCH (08:36)
[2018-08-12] MEDS: INSULIN GLARGINE 100 UNIT/ML SUBCUT SCH (08:37)
== END 2018-08-12 11:13 | disposition home or self-care (01) ==
LOC: N.EDINP 03:59 → N.ED 03:59 → N.TELES 12:09
PROC: IRTHORA (2018-08-11 16:30)